=== PATIENT | female | born 2005 | race Caucasian/White ===

== ENCOUNTER 2025-08-17 16:30 | Outpatient (NON) | payer BC, SELFPAY | END 2025-08-17 16:31 | disposition home or self-care (01) | LOC: ANHGOSHLAB 21:32 | PROVIDERS: PCP Family Medicine; Visit Provider Family Medicine | DX: Z11.3 Encounter for screening for infections with a predominantly sexual mode of transmission (principal) | CPT/HCPCS: 87491; 87591 ==